=== PATIENT | male | born 1970 | race Caucasian/White ===

== ENCOUNTER 2016-07-01 17:48 | Emergency (ER) | payer OTHER ==
[2016-07-01 17:50] VITALS: BP 156/101
== END 2016-07-01 19:41 | disposition left against medical advice (07) ==
LOC: ED 17:48
DX: Z53.21 Procedure and treatment not carried out due to patient leaving prior to being seen by health care provider (principal)

== ENCOUNTER 2020-03-08 02:58 | Emergency (ER) | payer OTHER ==
[~2020-03-08] VITALS: Ht 167.6 cm; Wt 80.7 kg
[2020-03-08 03:33] VITALS: Ht 167.6 cm; Wt 80.7 kg
[2020-03-08 04:19] VITALS: BP 162/97
== END 2020-03-08 04:19 | disposition home or self-care (01) ==
LOC: ED 02:58
DX: N13.2 Hydronephrosis with renal and ureteral calculous obstruction (principal); Z98.890 Other specified postprocedural states; Z87.442 Personal history of urinary calculi
CPT/HCPCS: J2270; Q0162

== ENCOUNTER 2020-03-10 16:29 | Inpatient (IN) | payer OTHER ==
[~2020-03-10] VITALS: Ht 167.6 cm; Wt 78.9 kg
[2020-03-10] MEDS ORDERED: NORCO1 TA2 PO (17:42)
[2020-03-10] MEDS ORDERED: NASAL MIST126 ML (17:42)
[2020-03-10] MEDS ORDERED: ZOFRAN4 M3 PO (17:42)
[2020-03-10] MEDS ORDERED: ZESTRIL10 MG PO (17:42)
[2020-03-10 18:29] LABS: BASOPHIL % 0.2 % (0-2); CALCIUM 8.8 mg/dL (8.5-10.1); CARBON DIOXIDE 32.1 mmol/L (21-32); CREATININE SERUM 1.6 mg/dL (0.7-1.3); PLATELET COUNT 202 x10^3mcL (130-400); POTASSIUM SERUM 4.6 mmol/L (3.5-5.1); RED CELL DISTRIBUTION WIDTH 13.1 % (11.5-14.5)
[2020-03-10 18:34] LABS: ALBUMIN 3.5 g/dL (3.4-5.0); BILIRUBIN TOTAL 0.4 mg/dL (0.20-1.00); TOTAL PROTEIN, SERUM 7.1 g/dL (6.4-8.2)
[2020-03-10 19:16] LABS: UA SPECIFIC GRAVITY 1.025 (1.005-1.035); microscopic required? YES; urine erythrocyte 2+ (NEGATIVE)
[2020-03-10 21:09] VITALS: BP 139/85
[2020-03-10 23:06] VITALS: Ht 167.6 cm; Wt 78.9 kg
[2020-03-11 05:29] VITALS: BP 136/85
[2020-03-11 07:02] LABS: BASOPHIL % 0.3 % (0-2); PLATELET COUNT 186 x10^3mcL (130-400)
[2020-03-11 07:37] LABS: BILIRUBIN TOTAL 0.3 mg/dL (0.20-1.00); CALCIUM 8.1 mg/dL (8.5-10.1); CREATININE SERUM 1.5 mg/dL (0.7-1.3); MAGNESIUM 2.1 mg/dL (1.8-2.4); POTASSIUM SERUM 3.8 mmol/L (3.5-5.1)
[2020-03-11 07:38] LABS: ALBUMIN 2.9 g/dL (3.4-5.0); TOTAL PROTEIN, SERUM 6.1 g/dL (6.4-8.2)
[2020-03-11 08:15] VITALS: BP 159/87
[2020-03-11 12:08] VITALS: BP 160/89
[2020-03-11 16:29] VITALS: BP 140/77
[2020-03-11 20:25] VITALS: BP 144/75
[2020-03-12 05:49] VITALS: BP 159/92
[2020-03-12 06:52] LABS: BASOPHIL % 0.4 % (0-2); PLATELET COUNT 208 x10^3mcL (130-400); RED CELL DISTRIBUTION WIDTH 12.7 % (11.5-14.5)
[2020-03-12 07:26] LABS: BILIRUBIN TOTAL 0.4 mg/dL (0.20-1.00); CALCIUM 8.6 mg/dL (8.5-10.1); CARBON DIOXIDE 29.8 mmol/L (21-32); CREATININE SERUM 1.6 mg/dL (0.7-1.3); POTASSIUM SERUM 4.3 mmol/L (3.5-5.1); TOTAL PROTEIN, SERUM 6.8 g/dL (6.4-8.2)
[2020-03-12 07:29] LABS: ALBUMIN 3.2 g/dL (3.4-5.0)
[2020-03-12 08:28] VITALS: BP 152/91
== END 2020-03-12 08:46 | disposition left against medical advice (07) | DRG 465 ==
LOC: ED 16:29 → MU 17:51 → DU 17:51 → MU 20:44 → DU 21:09
PROVIDERS: Emergency Medicine; ADMIT Hospitalist; ATTEND Hospitalist
DX: N13.2 Hydronephrosis with renal and ureteral calculous obstruction (principal); N17.9 Acute kidney failure, unspecified; N18.30 Chronic kidney disease, stage 3 unspecified; F17.210 Nicotine dependence, cigarettes, uncomplicated; Z53.29 Procedure and treatment not carried out because of patient's decision for other reasons; K42.9 Umbilical hernia without obstruction or gangrene; I12.9 Hypertensive chronic kidney disease with stage 1 through stage 4 chronic kidney disease, or unspecified chronic kidney disease; Z87.442 Personal history of urinary calculi
CPT/HCPCS: 99406; G0378; J0696; J1885; J7030